=== PATIENT | male | born 1995 | race Caucasian/White ===

== ENCOUNTER 2023-03-13 21:36 | Emergency (ER) | payer MEDICAID ==
[~2023-03-13] VITALS: Ht 182.9 cm; Wt 68.2 kg
[2023-03-13] MEDS ORDERED: cephalexin 500mg capsule PO ONE (23:35)
[2023-03-13] MEDS ORDERED: sulfamethoxazole/trimethoprim DS (800/160mg) tablet PO ONE (23:35)
[2023-03-13] MEDS ORDERED: LIDOcaine 1% W/epiNEPHrine 1:100,000 20ml vial SQ ONE (23:35)
[2023-03-14] MEDS ORDERED: ACET-1059 PO (00:01)
[2023-03-14] MEDS ORDERED: CEPH500C2 PO (00:01)
[2023-03-14] MEDS ORDERED: SULF1TAB49 PO ×2 (00:01→14:51)
[2023-03-14] MEDS ORDERED: acetaminophen w/codeine (30MG) #3 tablet PO ONE (00:05)
[2023-03-14 00:31] VITALS: BP 118/68
[2023-03-14] MEDS ORDERED: CEPH-585 PO (14:51)
[2023-03-15] MEDS ORDERED: SULF1TAB49 PO (22:27)
[2023-03-15] MEDS ORDERED: CEPH-585 PO (22:27)
== END 2023-03-14 00:36 | disposition home or self-care (01) ==
LOC: ER 21:37
DX: L02.31 Cutaneous abscess of buttock (principal)
CPT/HCPCS: 10060; 99284; A4565; A6449

== ENCOUNTER 2023-03-14 13:37 | Emergency (ER) | payer MEDICAID, OTHER ==
[~2023-03-14] VITALS: Ht 182.9 cm; Wt 68.2 kg
[~2023-03-14 13:37] MED LIST: ACET-1059 PO; CEPH500C2 PO; SULF1TAB49 PO
[2023-03-14] MEDS ORDERED: CEPH-585 PO (14:51)
[2023-03-14] MEDS ORDERED: SULF1TAB49 PO (14:51)
[2023-03-15] MEDS ORDERED: SULF1TAB49 PO (22:27)
[2023-03-15] MEDS ORDERED: CEPH-585 PO (22:27)
== END 2023-03-14 15:12 | disposition home or self-care (01) ==
LOC: ER 13:37
DX: Z76.0 Encounter for issue of repeat prescription (principal); L02.31 Cutaneous abscess of buttock
CPT/HCPCS: 99282; 99283

== ENCOUNTER 2023-03-15 21:17 | Emergency (ER) | payer MEDICAID, OTHER ==
[~2023-03-15] VITALS: Ht 182.9 cm; Wt 70.0 kg
[~2023-03-15 21:17] MED LIST changes: +CEPH-585 PO
[2023-03-15 21:43] VITALS: BP 157/88
[2023-03-15] MEDS ORDERED: CEPH-585 PO (22:27)
[2023-03-15] MEDS ORDERED: SULF1TAB49 PO (22:27)
== END 2023-03-15 22:42 | disposition home or self-care (01) ==
LOC: ER 21:17
DX: L02.31 Cutaneous abscess of buttock (principal); Z76.0 Encounter for issue of repeat prescription; Z79.899 Other long term (current) drug therapy
CPT/HCPCS: 99281